=== PATIENT | male | born 1985 | race Caucasian/White ===

== ENCOUNTER 2018-07-03 10:40 | Emergency (ER) | payer SELFPAY ==
[~2018-07-03] VITALS: Ht 170.2 cm; Wt 77.3 kg
[2018-07-03 10:44] VITALS: Ht 170.2 cm; Wt 77.3 kg
[2018-07-03 11:11] LABS: BASOPHILS 0 % (0-2); EOSINOPHILS 1.6 % (0-7); HEMATOCRIT 42.8 % (42.0-54.0); HEMOGLOBIN 15.4 g/dL (13.5-17.5); LYMPHOCYTES 31.4 % (15-50); MCH 31.5 pg (26.0-34.0); MCV 87.5 fL (80.0-100.0); MEAN PLATELET VOLUME 9.3 fL (7.4-10.4); PLATELET COUNT 185 10x3/uL (130-400); RBC 4.89 10x6/uL (4.20-6.10); RDW 12.6 % (11.5-14.5); WBC 5.6 10x3/uL (4.8-10.8)
[2018-07-03 11:24] LABS: ALBUMIN 3.9 g/dL (3.4-5.0); ALKALINE PHOSPHATASE 61 U/L (46-116); ALT (SGPT) 20 U/L (10-68); BILIRUBIN - TOTAL 0.79 mg/dL (0.2-1.3); CALC OSMOLALITY 273 mosm/kg (275-300); CALCIUM 8.5 mg/dL (8.5-10.1); CARBON DIOXIDE 29.2 mmol/L (21.0-32.0); CHLORIDE - SERUM 103 mmol/L (98-107); GLUCOSE 100 mg/dL (74-106); POTASSIUM - SERUM 3.4 mmol/L (3.5-5.1); PROTEIN - SERUM 7.3 g/dL (6.4-8.2); SODIUM 137 mmol/L (136-145); UREA NITROGEN 13 mg/dL (7-18); eGFR NON AFRICAN AMERICAN > 90 mL/min (90-120)
[2018-07-03 11:36] LABS: C-REACTIVE PROTEIN 0.3 mg/dL (0.0-0.9); CKMB 0.7 U/L (0.0-3.6); CREATINE KINASE 95 UL (21-232); THYROID STIMULATING HORMONE 2.17 uIU/mL (0.36-3.74)
[2018-07-03 11:38] LABS: TROPONIN-I < 0.017 ng/mL (0.000-0.060)
[2018-07-03 13:42] LABS: APPEARANCE CLEAR (CLEAR); BILIRUBIN NEGATIVE (NEGATIVE); COLOR YELLOW (YELLOW); GLUCOSE NEGATIVE (NEGATIVE); KETONE NEGATIVE (NEGATIVE); NITRITE NEGATIVE (NEGATIVE); PROTEIN NEGATIVE (NEGATIVE); SPECIFIC GRAVITY 1.015 (1.005-1.020); UROBILINOGEN NORMAL (NORMAL)
[2018-07-03 15:01] VITALS: BP 111/81
== END 2018-07-03 14:00 | disposition home or self-care (01) ==
LOC: D.ER 10:40
PROVIDERS: Family Medicine
DX: E86.0 Dehydration (principal); R42 Dizziness and giddiness